=== PATIENT | female | born 1975 | race Caucasian/White ===

== ENCOUNTER 2024-05-19 17:50 | Inpatient (IN) | payer OTHER ==
[~2024-05-19] VITALS: Ht 167.6 cm; Wt 77.3 kg
[2024-05-19 20:11] LABS: BASOPHILS % (AUTO) 0.8 % (0.0-2.0); EOSINOPHILS % (AUTO) 6.6 % (1.0-6.0); HEMATOCRIT 33.3 % (36-46); LYMPHOCYTES # (AUTO) 1.4 K/uL (1.0-4.8); MEAN CORPUSCULAR HEMOGLOBIN 29.7 pg (26.0-34.0); MEAN CORPUSCULAR VOLUME 90 fL (80-100); MONOCYTES # (AUTO) 0.4 K/uL (0.1-1.0); NEUTROPHILS # (AUTO) 1.3 K/uL (1.8-7.7); NEUTROPHILS % (AUTO) 39.6 % (40.0-70.0); PLATELET COUNT (AUTO) 193 K/uL (150-450); RED BLOOD CELL COUNT(AUTO) 3.71 MIL/uL (4.00-5.20); RED CELL DISTRIBUTION WIDTH 14.3 % (11.5-14.5); WHITE BLOOD COUNT (AUTO) 3.4 K/uL (4.5-11.0)
[2024-05-19 20:17] LABS: ANION GAP 5 mmol/L (8-16); CALCIUM, TOTAL 8.5 mg/dL (8.8-10.5); CARBON DIOXIDE 28 mmol/L (22-29); CHLORIDE 105 mmol/L (98-107); GLOMERULAR FILTR. RATE CALC > 60 mL/min (>60); GLUCOSE,RANDOM 92 mg/dL (70-110); POTASSIUM 4.6 mmol/L (3.5-5.1); SODIUM SERUM 138 mmol/L (136-145); UREA NITROGEN, BLOOD 25 mg/dL (7-18)
[2024-05-19 20:28] LABS: HCG,QUANTITATIVE 1 mIU/mL (0-6); LIPASE 26 U/L (16-77)
[2024-05-19] MEDS ORDERED: IOHEXOL 350 MG/ML 100 ML VIAL ONE (21:30)
[2024-05-19 21:54] LABS: APPEARANCE,URINE CLEAR (CLEAR); BILIRUBIN,URINE NEGATIVE (NEGATIVE); COLOR,URINE YELLOW (YELLOW); GLUCOSE, URINE (UA) NEGATIVE (NEGATIVE); KETONES,URINE NEGATIVE (NEGATIVE); LEUKOCYTE ESTERASE ,URINE TRACE (NEGATIVE); NITRATE,URINE NEGATIVE (NEGATIVE); OCCULT BLOOD,URINE NEGATIVE (NEGATIVE); PROTEIN,URINE 30-70 mg/dL (NEGATIVE); SPECIFIC GRAVITIY, URINE 1.033 (1.003-1.030); UROBILINOGEN,URINE <=1.0 mg/dL (<=1.0)
[2024-05-19 22:13] LABS: BACTERIA,URINE Rare /HPF (None Seen); RBC,URINE None Seen /HPF (0-2); SQUAMOUS EPITHELIAL CELL,UR Moderate /LPF (None Seen); WBC,URINE 0-2 /HPF (0-5)
[2024-05-19] MEDS ORDERED: TENO300 PO (23:11)
[2024-05-19] MEDS ORDERED: DOLU50TA PO (23:11)
[2024-05-19] MEDS ORDERED: LISI-894 PO (23:11)
[2024-05-19] MEDS ORDERED: CEPH-558 PO (23:11)
[2024-05-19] MEDS ORDERED: LAMI150T33 PO (23:11)
[2024-05-19] MEDS ORDERED: HYDROCODONE/ACETAMINOPHEN 5-325 MG TABLET PO PRN (23:15)
[2024-05-19] MEDS ORDERED: IPRATROPIUM BROMIDE 0.5 MG/2.5 ML NEB SOLUTION NEB PRN (23:15)
[2024-05-19] MEDS ORDERED: MAGNESIUM HYDROXIDE SUSPENSION 30 ML UDCUP PO PRN (23:15)
[2024-05-19] MEDS ORDERED: MORPHINE SULFATE 2 MG/ML SYRINGE IVP PRN (23:15)
[2024-05-19] MEDS ORDERED: ONDANSETRON HCL 4 MG/2 ML VIAL IVP PRN (23:15)
[2024-05-19] MEDS ORDERED: ZOLPIDEM TARTRATE 5 MG TABLET PO PRN (23:15)
[2024-05-19] MEDS ORDERED: ALBUTEROL SULFATE 2.5 MG/0.5 ML NEB SOLUTION NEB PRN (23:15)
[2024-05-19] MEDS ORDERED: BISACODYL 10 MG RECTAL RECTAL SUPPOSITORY PR PRN (23:15)
[2024-05-19] MEDS ORDERED: ACETAMINOPHEN 325 MG TABLET PO PRN (23:15)
[2024-05-19 23:23] LABS: HEMATOCRIT 33.1 % (36-46); HEMOGLOBIN 10.9 g/dL (12.0-16.0)
[2024-05-20 03:59] VITALS: BP 116/71; PULSE 73; RESP 18; TEMP 97.7; O2SAT 99
[2024-05-20 08:00] VITALS: BP 103/65; PULSE 88; RESP 18; TEMP 97.8; O2SAT 97
[2024-05-20] MEDS: PANTOPRAZOLE SODIUM 40 MG/VIAL IVP SCH (08:08)
[2024-05-20 09:13] LABS: HEMOGLOBIN 11.6 g/dL (12.0-16.0)
[2024-05-20 16:11] LABS: HEMATOCRIT 34.6 % (36-46); HEMOGLOBIN 11.5 g/dL (12.0-16.0)
[2024-05-20] MEDS ORDERED: PANT-31 PO (17:27)
[2024-05-20 20:12] VITALS: BP 135/80; PULSE 105; RESP 18; TEMP 99.5; O2SAT 98
[2024-05-21 05:17] VITALS: BP 115/72; PULSE 94; RESP 18; TEMP 98.2; O2SAT 99
[2024-05-21 06:07] LABS: HEPATITIS C AB (EIA) Reactive (Non Reactive)
[2024-05-21 07:30] VITALS: BP 135/84; PULSE 81; RESP 18; TEMP 98.2; O2SAT 98
[2024-05-21 13:03] LABS: BASOPHILS % (AUTO) 0.5 % (0.0-2.0); LYMPHOCYTES # (AUTO) 1.1 K/uL (1.0-4.8); MEAN CORPUSCULAR HGB CONC 33.2 G/dL (31.0-37.0); NEUTROPHILS # (AUTO) 1.9 K/uL (1.8-7.7); PLATELET COUNT (AUTO) 190 K/uL (150-450)
[2024-05-21 13:16] LABS: ANION GAP 5 mmol/L (8-16); CALCIUM, TOTAL 8.2 mg/dL (8.8-10.5); CARBON DIOXIDE 28 mmol/L (22-29); CHLORIDE 101 mmol/L (98-107); CREATININE 0.76 mg/dL (0.60-1.30); GLOMERULAR FILTR. RATE CALC > 60 mL/min (>60); GLUCOSE,RANDOM 95 mg/dL (70-110); SODIUM SERUM 134 mmol/L (136-145); UREA NITROGEN, BLOOD 17 mg/dL (7-18)
[2024-05-21 13:21] LABS: ALANINE AMINOTRANSFERASE 25 U/L (12-78); ALBUMIN 2.6 g/dL (3.4-5.0); ALKALINE PHOSPHATASE 72 U/L (46-116); ASPARTATE AMINOTRANSFERASE 28 U/L (15-37); BILIRUBIN,TOTAL 0.5 mg/dL (0.1-1.0); TOTAL PROTEIN, SERUM 9.3 g/dL (6.4-8.2)
[2024-05-21 13:22] LABS: EOSINOPHILS % (AUTO) 4.3 % (1.0-6.0); HEMATOCRIT 35.7 % (36-46); HEMOGLOBIN 11.8 g/dL (12.0-16.0); LYMPHOCYTES % (AUTO) 30.6 % (22.0-44.0); MEAN CORPUSCULAR HEMOGLOBIN 29.6 pg (26.0-34.0); MEAN CORPUSCULAR VOLUME 89 fL (80-100); MONOCYTES # (AUTO) 0.4 K/uL (0.1-1.0); MONOCYTES % (AUTO) 11.4 % (2.0-9.0); NEUTROPHILS % (AUTO) 53.2 % (40.0-70.0); RED CELL DISTRIBUTION WIDTH 14.1 % (11.5-14.5); WHITE BLOOD COUNT (AUTO) 3.6 K/uL (4.5-11.0)
[2024-05-21] MEDS: PEG 3350/NA SULF,BICARB,CL/KCL 4000 ML SOLUTION PO ONE ×2 (17:38→20:05)
[2024-05-21 20:10] VITALS: BP 123/90; PULSE 97; RESP 18; TEMP 98.1; O2SAT 98
[2024-05-22 04:39] VITALS: BP 139/87; PULSE 98; RESP 18; TEMP 98.3; O2SAT 98
[2024-05-22] MEDS ORDERED: SODIUM CHLORIDE 0.9% 1,000 ML IV ONE (05:15)
[2024-05-22] MEDS ORDERED: SODIUM CHLORIDE 0.9% 1,000 ML ONE (06:12)
[2024-05-22] MEDS ORDERED: NALOXONE HCL 0.4 MG/ML VIAL ONE (06:36)
[2024-05-22] MEDS ORDERED: FLUMAZENIL 0.1 MG/ML 5 ML VIAL IVP ONE (06:36)
[2024-05-22] MEDS ORDERED: SODIUM TETRADECYL SULFATE 3% 60 MG/2 ML VIAL IVP ONE (06:36)
[2024-05-22] MEDS ORDERED: ATROPINE SULFATE 0.1 MG/ML 10 ML SYRINGE IVP ONE (06:36)
[2024-05-22] MEDS ORDERED: EPINEPHrine 1:10,000 [1 MG/10 ML] SYRINGE ONE (06:36)
[2024-05-22] MEDS ORDERED: DiphenhydrAMINE HCL 50 MG/ML VIAL ONE (06:36)
[2024-05-22] MEDS ORDERED: MIDAZOLAM HCL 5 MG/ML VIAL ONE (06:37)
[2024-05-22] MEDS ORDERED: FentaNYL CITRATE PF 100 MCG/2 ML VIAL ONE (06:37)
[2024-05-22 08:28] VITALS: BP 140/91; PULSE 95; RESP 18; TEMP 97.9; O2SAT 99
[2024-05-22] MEDS: POLYETHYLENE GLYCOL 3350 17 GM PACKET PO SCH (08:43)
[2024-05-22 19:49] VITALS: BP 135/85; PULSE 98; RESP 18; TEMP 97.4; O2SAT 97
[2024-05-23 17:07] LABS: HEPATITIS C RT-PCR,QNT HCV Not Detected IU/mL
== END 2024-05-22 20:30 | DRG 377 ==
LOC: EMS 17:50 → EDH 23:02 → 6S 05-20 03:13
PROVIDERS: ADMIT Hospitalist; ATTEND Hospitalist
PROC: 0DJD8ZZ Inspection of Lower Intestinal Tract, Via Natural or Artificial Opening Endoscopic (ICD-10-PCS; principal; 2024-05-22 07:03)
DX: K92.1 Melena (principal); E43 Unspecified severe protein-calorie malnutrition; K64.9 Unspecified hemorrhoids; I10 Essential (primary) hypertension; D50.0 Iron deficiency anemia secondary to blood loss (chronic); C50.919 Malignant neoplasm of unspecified site of unspecified female breast; Z79.899 Other long term (current) drug therapy; Z68.27 Body mass index [BMI] 27.0-27.9, adult
CPT/HCPCS: 74177; 80048; 80053; 81001; 82271; 83690; 84702; 85014; 85018; 85025; 86803; 87081; 87340; 87522; 99285; G0378; J0171; J0461; J1200; J2250; J2310; J2470; J3010; J3490; J7030